=== PATIENT | female | born 1990 | race Caucasian/White ===

== ENCOUNTER → 2017-10-29 09:44 | Outpatient (CLI) | payer OTHER, SELFPAY ==
[2017-10-29 11:17] LABS: HCG,Quantitative 33 mIU/mL
== END ==
PROVIDERS: Visit Provider Obstetrics & Gynecology
DX: Z32.00 Encounter for pregnancy test, result unknown (principal)
CPT/HCPCS: 36415; 84702

== ENCOUNTER → 2017-11-01 09:30 | Outpatient (CLI) | payer OTHER, SELFPAY ==
[2017-11-01 10:52] LABS: HCG,Quantitative 13 mIU/mL
== END ==
PROVIDERS: Visit Provider Obstetrics & Gynecology
DX: Z32.00 Encounter for pregnancy test, result unknown (principal)
CPT/HCPCS: 36415; 84702

== ENCOUNTER → 2018-01-12 17:33 | Outpatient (CLI) | payer OTHER, SELFPAY ==
[2018-01-12 18:56] LABS: HCG,Quantitative 0 mIU/mL
== END ==
PROVIDERS: Visit Provider Nurse Practitioner Obstetrics & Gynecology
DX: Z32.00 Encounter for pregnancy test, result unknown (principal)
CPT/HCPCS: 36415; 84702

== ENCOUNTER → 2018-02-10 09:22 | Outpatient (CLI) | payer OTHER, SELFPAY ==
[2018-02-10 19:58] LABS: HCG,Quantitative 0 mIU/mL
== END ==
PROVIDERS: Visit Provider Nurse Practitioner Obstetrics & Gynecology
DX: Z32.00 Encounter for pregnancy test, result unknown (principal)
CPT/HCPCS: 36415; 84702

== ENCOUNTER → 2018-03-26 17:29 | Outpatient (CLI) | payer OTHER, SELFPAY ==
[2018-03-26 21:00] LABS: HCG,Quantitative 980 mIU/mL
== END ==
PROVIDERS: Visit Provider Nurse Practitioner Obstetrics & Gynecology
DX: Z34.90 Encounter for supervision of normal pregnancy, unspecified, unspecified trimester (principal)
CPT/HCPCS: 36415; 84702

== ENCOUNTER → 2018-03-30 17:10 | Outpatient (CLI) | payer OTHER, SELFPAY ==
[2018-03-30 18:00] LABS: Basophils % 0.5 % (0.1-2.0); Eosinophils # 0.1 K/mm3 (0.0-0.4); Eosinophils % 0.9 % (0.1-12.0); Hematocrit 34.5 % (37.0-47.0); Hemoglobin 11.2 g/dL (12.2-16.2); Lymphocytes # 2.5 K/mm3 (0.7-4.5); Lymphocytes % 31.7 K/mm3 (10-50); Mean Corpuscular HGB Conc 32.4 g/dL (31.8-35.4); Mean Corpuscular Hemoglobin 28.1 pg (27.0-31.2); Mean Corpuscular Volume 86.9 fl (81-99); Mean Platelet Volume 6.8 fl (7.4-10.4); Monocytes # 0.2 K/mm3 (0.1-1.0); Monocytes % 3.1 % (1.7-9.3); Neutrophils # 4.9 K/mm3 (1.8-7.8); Neutrophils % 63.7 % (37.0-80.0); Platelet Count 328 K/mm3 (142-424); Red Blood Count 3.97 M/mm3 (4.20-5.40); Red Cell Distribution Width 16.5 % (11.5-17.5); White Blood Count 7.8 K/mm3 (4.8-10.8)
[2018-04-01 14:42] LABS: HIV Screen 4th Generation wRfx Non Reactive (Non Reactive); Hepatitis B Surface Antigen Negative (Negative); Hepatitis C Antibody <0.1 s/co ratio (0.0-0.9)
[2018-04-01 14:43] LABS: Rapid Plasma Reagin Ab Titer Non Reactive (NonRea<1:1); Rubella Antibodies, IgG 2.36 index (Immune >0.99)
== END ==
PROVIDERS: Visit Provider Nurse Practitioner Obstetrics & Gynecology
DX: Z34.90 Encounter for supervision of normal pregnancy, unspecified, unspecified trimester (principal)
CPT/HCPCS: 36415; 85025; 86592; 86703; 86762; 86850; 87340; 87380; G0432

== ENCOUNTER → 2018-04-02 08:58 | Outpatient (CLI) | payer OTHER, SELFPAY ==
[2018-04-02 12:03] LABS: HCG,Quantitative 11433 mIU/mL
== END ==
PROVIDERS: Visit Provider Nurse Practitioner Obstetrics & Gynecology
DX: Z34.90 Encounter for supervision of normal pregnancy, unspecified, unspecified trimester (principal)
CPT/HCPCS: 36415; 84702

== ENCOUNTER → 2018-04-22 08:14 | Outpatient (CLI) | payer OTHER, SELFPAY ==
--- NOTE | 2018-04-22 08:16 | US_ITS ---
US OB transvaginal HISTORY: ITS.REASON: US OB Dates ORDERING PHYSICIAN: Emiliano Palomino MD PATIENT AGE: 27 years COMPARISON: None FINDINGS: An intrauterine gestational sac is present with a pole with a crown-rump length of 1.86cm correlating to gestational age of 8w3d. heart tones are present with an FHR of 167 bpm's. Yolk sac is noted. The amnion and chorion have not yet fused. Adnexa: Unremarkable. IMPRESSION: Live intrauterine gestation at 8 weeks 3 days as described above. Estimated due date by Ultrasound is 11/29/2018
== END ==
PROVIDERS: Visit Provider Nurse Practitioner Obstetrics & Gynecology
DX: O26.841 Uterine size-date discrepancy, first trimester (principal)
CPT/HCPCS: 76817

== ENCOUNTER → 2018-07-13 09:03 | Outpatient (CLI) | payer OTHER, SELFPAY ==
--- NOTE | 2018-07-13 09:07 | US_ITS ---
US OB /maternal detail: INDICATION: ITS.REASON: US OB Complete ORDERING PHYSICIAN: Emiliano Palomino MD PATIENT AGE: 28 years TECHNIQUE: ultrasound transabdominal scanning. COMPARISON: No previous relevant studies. FINDINGS: Single viable intrauterine gestation. Breech position at the end of the exam. Placenta: Posterior and fundal and anterior accessory lobe, placenta grade 1. There is average amount fluid. The cervix appears satisfactory. Closed and measuring 3 cm in length. Complete survey performed and was unremarkable on the submitted images as in PACS. No discrete anomalies identified on survey imaging by technologist. Active fetus. Three-vessel cord with satisfactory umbilical cord insertion. 4- chamber heart noted. Survey of brain & ventricles unremarkable. Face and neck survey unremarkable. Diaphragm and chest views unremarkable. Abdomen: Both kidneys noted and unremarkable. Stomach noted and satisfactory. There is minimal prominence of the renal pelves on both sides consistent with pyelectasis. Measuring approximate 6 mm on both sides. Spine: Survey of the spine satisfactory with no anomalies identified nor imaged. Both arms and legs noted. Amniotic Fluid: Adequate. Maternal adnexa: No significant findings. Measurements: Average ultrasound age 20w2d. Gestational Age 20w1d. Estimated due date by ultrasound age 0611/28/2018. Estimated weight 335 grams. BPD = 20w5d OFD = 20w5d HC = 19w6d AC = 20w3d FL = 20w0d Growth Percentile= 46% Heart Rate = 144 Cerebellum = 21w0d Humerus = 20w1d HC/AC is 1.14 (1.09-1.26). CI is 80% (70-86%). FL/BPD is 66%. FL/AC is 21%. IMPRESSION: There is a single live fetus which at the end of the exam was in breech presentation with an average ultrasound age of 20 weeks and 2 days. All parameters correlate. Fetus was active. There was some mild pyelectasis which is a question clinical significance. Follow-up exam at 30-40 weeks gestation may provide further evaluation. Otherwise unremarkable.
== END ==
PROVIDERS: Visit Provider Nurse Practitioner Obstetrics & Gynecology
DX: Z36.0 Encounter for antenatal screening for chromosomal anomalies (principal)
CPT/HCPCS: 76811; 76816

== ENCOUNTER 2018-08-25 11:23 | Outpatient (CLI) | payer OTHER, SELFPAY ==
[2018-08-25 11:27] VITALS: BP 99/61; PULSE 58; RESP 16; TEMP 36.5; O2SAT 100; BMI 17.8
[2018-08-25 11:32] VITALS: BMI 17.8
[2018-08-25 11:44] LABS: Microscopic, Urine URINE MICROSCOPIC (MICROSCOPIC)
[2018-08-25 11:49] LABS: Appearance,Urine CLEAR (Clear); Bilirubin,Urine Negative (Negative); Blood, Urine Negative (Negative); Color,Urine YELLOW (Yellow); Glucose,Urine (UA) Negative (Negative); Ketones,Urine Negative (Negative); Leukocyte Esterase,Urine Negative (Negative); Nitrate,Urine Negative (Negative); Protein,Urine Negative (Negative); Specific Gravity, Urine 1.015 (1.005-1.030)
[2018-08-25 12:26] LABS: Fetal Membrane Rupture (Rapid) Negative (Negative)
[2018-08-25 12:40] LABS: Bacteria,Urine 2+ /lpf
[2018-08-25 12:56] LABS: Fetal Fibronectin (Rapid) Negative (Negative)
== END 2018-08-25 13:10 | disposition home or self-care (01) ==
LOC: OBOUT 11:25 → OB 11:25
PROVIDERS: Visit Provider Nurse Practitioner Obstetrics & Gynecology
DX: O47.02 False labor before 37 completed weeks of gestation, second trimester (principal); Z3A.26 26 weeks gestation of pregnancy
CPT/HCPCS: 59025; 81001; 82731; 84112; 87086; 96360; 96372

== ENCOUNTER → 2018-08-26 08:16 | Outpatient (CLI) | payer OTHER, SELFPAY ==
[2018-08-26 08:35] LABS: Glucose,Fasting 83 mg/dL (60-105)
[2018-08-26 10:06] LABS: Glucose 1 Hour 130 mg/dL (74-106)
== END ==
PROVIDERS: Visit Provider Nurse Practitioner Obstetrics & Gynecology
DX: Z34.90 Encounter for supervision of normal pregnancy, unspecified, unspecified trimester (principal)
CPT/HCPCS: 36415; 82951

== ENCOUNTER → 2018-09-08 13:24 | Outpatient (CLI) | payer OTHER, SELFPAY ==
--- NOTE | 2018-09-08 13:26 | US_ITS ---
US OB BPP w/Fet-Mat S/D: Indication: ITS.REASON: US OB BPP Growth- Recheck fetus kidneys ORDERING PHYSICIAN: Emiliano Palomino MD PATIENT AGE: 28 years FINDINGS: The following parameters are obtained: Average ultrasound age is 28w0d. Estimated due date by ultrasound is 12/01/2018. Estimated weight is 1081 . This is 14th percentile BPD: 28w2d OFD: 29w0d HC: 28w4d AC: 27w1d FL: 27w5d heart rate: 144 bpm. HC/AC: 1.16 (1.05-1.22) Cephalic index: 74% (70-86%) FL/BPD: 74% (71-87%) FL/AC: 23% (20-24%) Amniotic fluid index: 12 cm Qualitative AFV: 2 breathing movements: 2 Gross body movements: 2 Tone: 2 Biophysical profile score: 8/8 Doppler evaluation of the umbilical artery: SD ratio: 3.1 Resistive index: 0.68 There remains mild ectasia of both renal collecting systems not significantly changed. The AP dimension of the left renal pelvis is 6 mm and in the right renal pelvis 5 mm.. Placenta: Post lat GR 1 IMPRESSION: There is a live intrauterine gestation with an average ultrasound age of 28 weeks 0 days. There has been adequate progression. There is no evidence of all ago hydramnios. JESSIE is normal. Biophysical profile is 8 of 8 and Doppler evaluation of the umbilical artery is unremarkable. There remains mild pyelectasis overall not significantly changed.
== END ==
PROVIDERS: PCP Nurse Practitioner Obstetrics & Gynecology; Visit Provider Nurse Practitioner Obstetrics & Gynecology
DX: O35.8XX0 Maternal care for other (suspected) fetal abnormality and damage, not applicable or unspecified (principal)
CPT/HCPCS: 76811; 76816; 76819; 76820

== ENCOUNTER → 2018-10-27 11:00 | Outpatient (CLI) | payer OTHER, SELFPAY | PROVIDERS: Visit Provider Nurse Practitioner Obstetrics & Gynecology | DX: Z34.90 Encounter for supervision of normal pregnancy, unspecified, unspecified trimester (principal) | CPT/HCPCS: 86403 ==

== ENCOUNTER → 2018-11-12 10:44 | Outpatient (CLI) | payer OTHER, SELFPAY ==
--- NOTE | 2018-11-12 10:45 | US_ITS ---
US OB follow up: Indication: ITS.REASON: US OB Growth JESSIE- Small for dates ORDERING PHYSICIAN: Mildred Zhang MD PATIENT AGE: 28 years FINDINGS: There is a single live fetus which is in cephalic presentation. heart and body motion noted. The sent is posterior and fundal an implantation and grade 2. The following parameters are obtained: Average ultrasound age is 36w0d. Estimated due date by ultrasound is 12/10/2018. Estimated weight is 2742gm. This is 15th percentile BPD: 37w0d OFD: 36w5d HC: 35w0d AC: 35w0d FL: 37w0d. There is heart rate: 144 bpm. HC/AC: 1.01 (0.92-1.05) Cephalic index: 82% (70-86%) FL/BPD: 79% (71-87%) FL/AC: 23% (20-24%) Amniotic fluid index: 18 cm Doppler evaluation of the umbilical artery: SD ratio: 2.7 Resistive index: 0.64 Note is made of visualization of a nondistended colon. The bowel is not hyperechoic Placenta: Posterior High, GR2 Cervix: Appears closed and measures 4 cm IMPRESSION: There is a single live intrauterine gestation with average ultrasound age of 36 weeks and 0 days and an estimated weight 2742 g which is 15th percentile. Amniotic fluid index is upper limits of normal at 18 cm. Unremarkable Doppler evaluation of the umbilical artery. The placenta is posterior and fundal and grade 2.
== END ==
PROVIDERS: Visit Provider Obstetrics & Gynecology
DX: O36.5990 Maternal care for other known or suspected poor fetal growth, unspecified trimester, not applicable or unspecified (principal)
CPT/HCPCS: 76816

== ENCOUNTER 2018-11-16 13:55 | Outpatient (CLI) | payer OTHER, SELFPAY ==
[2018-11-16 14:02] VITALS: BP 113/62; PULSE 99; RESP 18; TEMP 36.6; O2SAT 99; BMI 18.6
[2018-11-16 14:16] LABS: Appearance,Urine CLEAR (Clear); Bilirubin,Urine Negative (Negative); Blood, Urine Negative (Negative); Color,Urine YELLOW (Yellow); Glucose,Urine (UA) Negative (Negative); Ketones,Urine Negative (Negative); Leukocyte Esterase,Urine 1+ (Negative); Microscopic, Urine URINE MICROSCOPIC (MICROSCOPIC); Nitrate,Urine Negative (Negative); PH,Urine 6.5 (5.0-8.5); Protein,Urine Negative (Negative); Specific Gravity, Urine 1.015 (1.005-1.030); Urobilinogen,Urine 0.2 EU/dl (0.2)
[2018-11-16 14:26] LABS: Amphetamine/Metha Screen,Urine Negative ng/mL (<1000); Barbiturates Screen,Urine Positive ng/mL (<200); Benzodiazepines Screen,Urine Negative ng/mL (<200); Cannabinoid Screen,Urine Negative ng/mL (<50); Cocaine Screen,Urine Negative ng/mL (<300); Methadone Screen,Urine Negative ng/mL (<300); Opiate Screen,Urine Positive ng/mL (<300); Phencyclidine Screen,Urine Negative ng/mL (<25)
[2018-11-16 14:30] LABS: Bacteria,Urine 1+ /lpf; Mucus,Urine Trace /lpf
== END 2018-11-16 14:45 | disposition home or self-care (01) ==
LOC: OBOUT 13:56 → OB 13:57
PROVIDERS: Visit Provider Nurse Practitioner Obstetrics & Gynecology
DX: O60.03 Preterm labor without delivery, third trimester (principal); Z3A.38 38 weeks gestation of pregnancy
CPT/HCPCS: 59025; 80305; 81001; 87086

== ENCOUNTER 2018-11-23 04:48 | Inpatient (IN) ==
[2018-11-23 05:39] LABS: Microscopic, Urine URINE MICROSCOPIC (MICROSCOPIC)
[2018-11-23 05:39] LABS: Basophils % 0.2 % (0.1-2.0); Eosinophils # 0.1 K/mm3 (0.0-0.4); Eosinophils % 0.5 % (0.1-12.0); Hematocrit 29.8 % (37.0-47.0); Hemoglobin 9.3 g/dL (12.2-16.2); Lymphocytes # 2.2 K/mm3 (0.7-4.5); Lymphocytes % 17.4 % (10-50); Mean Corpuscular HGB Conc 31.3 g/dL (31.8-35.4); Mean Corpuscular Volume 87.2 fl (81-99); Mean Platelet Volume 8.9 fl (7.4-10.4); Monocytes # 0.6 K/mm3 (0.1-1.0); Monocytes % 4.3 % (1.7-9.3); Neutrophils # 9.9 K/mm3 (1.8-7.8); Neutrophils % 77.5 % (37.0-80.0); Platelet Count 268 K/mm3 (142-424); Red Blood Count 3.42 M/mm3 (4.20-5.40); Red Cell Distribution Width 13.4 % (11.5-17.5); White Blood Count 12.7 K/mm3 (4.8-10.8)
[2018-11-23 05:45] LABS: Appearance,Urine SL CLOUDY (Clear); Bilirubin,Urine Negative (Negative); Blood, Urine Negative (Negative); Color,Urine YELLOW (Yellow); Glucose,Urine (UA) Negative (Negative); Ketones,Urine Negative (Negative); Leukocyte Esterase,Urine TRACE (Negative); Protein,Urine Negative (Negative); Specific Gravity, Urine 1.015 (1.005-1.030)
[2018-11-23 05:48] LABS: Amphetamine/Metha Screen,Urine Negative ng/mL (<1000); Barbiturates Screen,Urine Positive ng/mL (<200); Benzodiazepines Screen,Urine Negative ng/mL (<200); Cannabinoid Screen,Urine Negative ng/mL (<50); Cocaine Screen,Urine Negative ng/mL (<300); Methadone Screen,Urine Negative ng/mL (<300); Opiate Screen,Urine Positive ng/mL (<300); Phencyclidine Screen,Urine Negative ng/mL (<25)
[2018-11-23 05:49] LABS: Amorphous Sediment,Urine 2+ /lpf; Squamous Epithelial Cell,Urine 20-50 #/hpf (0-5); WBC,Urine Occasional #/hpf (0-3)
--- NOTE | 2018-11-23 09:26 | History & Physical Report ---
OB - H&P: HPI Antepartum - History of Present Illness Chief complaint: Contractions and pressure History of present illness: She is a 28-year-old 7 para 5 aborta 1 who complains of lots of pressure and contractions. She has been having this since about 34 weeks. - History of Present Criteria for establishing EDC:: LMP confirmed by 1st trimester US care: good care Ultrasounds: normal 1st trimester US, normal mid trimester US Obstetrical complications: none Medical complications: none - Labs Blood type: B (+) positive Rubella: immune RPR/VDRL: nonreactive GBS status: negative [facility] History I have reviewed the patient's past medical history: Yes Medical History: Reports:: Anxiety, Depression, Migraine *Have you ever received a pneumonia vaccine?: No *Have you received a flu vaccine this season?: No Other Surgeries: Yes: Appendectomy. No: Amputation: No Fractures: No - *Social History Smoking Status: Current every day smoker Alcohol Intake: never Substance Use Type: denies use *Occupational Status:: unemployed *Travel in the last 8 weeks: None - Psychiatric History Pschychiatric History:: Reports:: Anxiety, Depression Family Hx:: No significant family history Para: 5 Review of Systems - Review of Systems Review of systems:: pertinent systems reviewed and negative unless documented below Meds Home Medications Medication Instructions Recorded Confirmed Type 1 tab PO DAILY 03/30/18 11/23/18 History vitamin,calcium,utqsftzk-zgkr-gbjyd acid tablet promethazine 12.5 mg tablet 12.5 mg PO Q6H PRN #20 tab 04/08/18 11/23/18 Rx Acetaminophen with Codeine 1 tab PO NEEDED PRN 11/23/18 11/23/18 History [Tylenol with Codeine #3 tablet] Butalb/Acetaminophen/Caffeine 1 tab PO NEEDED PRN 11/23/18 11/23/18 History [Fiorcet Tablet] Ferrous Sulfate 325 mg PO DAILY 11/23/18 11/23/18 History raNITIdine HCl [Ranitidine HCl] 150 mg PO DAILY 11/23/18 11/23/18 History Allergies Allergy/AdvReac Type Severity Reaction Status Date / Time Nalbuphine Allergy Severe THROAT Uncoded 11/17/18 08:48 SWELL PCN (penicillin) Allergy Intermediate I-HIVES Uncoded 11/17/18 08:48 Penicillin Allergy Unknown Uncoded 11/17/18 08:48 Penicillin G Allergy Unknown Uncoded 11/17/18 08:48 OB - H&P: Exam - Physical Exam Vital signs: Temp Pulse Resp BP Pulse Ox 98.2 F 72 18 105/51 L 100 11/23/18 08:13 11/23/18 08:13 11/23/18 08:13 11/23/18 08:13 11/23/18 08:13 - Constitutional no acute distress - Routine HEENT Exam Head: Present: normocephalic Eye: Present: EOMI, PERRL ENT: Present: mucous membranes moist - Routine Neck Exam Present: supple, full ROM - Routine Respiratory Exam Absent: accessory muscle use (good air entry bilaterally), respiratory distress, wheezes, crackles - Routine Cardiovascular Exam Present: RRR. Absent: murmur - Routine Abdominal Exam Present: soft, normoactive bowel sounds. Absent: tenderness, distended, guarding - Routine Rectal Exam Patient deferred: visual exam, digital exam - Routine Exam Patient deferred: external exam, groin exam, perineal exam - Routine Extremities Exam Present: full ROM. Absent: cyanosis, edema - Routine Skin Exam Present: intact. Absent: cyanosis - Routine Neurological Exam Present: alert, oriented X3 - Routine Psychiatric Exam Present: normal affect OB - Results - Labs Labs: Short CBC 11/23/18 Range/Units 05:30 WBC 12.7 H (4.8-10.8) K/mm3 Hgb 9.3 L (12.2-16.2) g/dL Hct 29.8 L (37.0-47.0) % Plt Count 268 (142-424) K/mm3 Urine 11/23/18 Range/Units 05:00 Urine Color Yellow (Yellow) Urine Appearance Sl cloudy (Clear) Urine pH 7.0 (5.0-8.5) Ur Specific [place] 1.015 (1.005-1.030) Urine Protein Negative (Negative) Urine Glucose (UA) Negative (Negative) OB - A/P Antepartum (1) Normal delivery Current visit: Yes Status: Acute (2) Grand multiparity with current Problem details: Current visit: No Status: Acute - Additional Plan Planning to breastfeed?: No Plan: other Additional Information:: She has been having regular contractions on arrival. She is still 2 to 3 cm. I have inserted an IUPC and a scalp clip. I ruptured her membranes and there was clear fluid. The nonstress test is reactive. She is raquel every 2 to 3 minutes now.
--- NOTE | 2018-11-23 09:27 | Progress Note ---
Labor Note - Subjective: Date: 11/23/18 Time: 09:27 regular contraction - Objective: NST:: Reactive Contractions:: every 2-3 minutes Cervical Dilation:: 2-3 Effacement:: 50% Station: -2 Membranes: artificially ruptured - Fetus: Monitoring?: Yes monitoring type:: Internal - Assessment: Labor progressing?: Yes Cephalopelvic disproportion?: No Patient Problems: All Active Problems Normal delivery (Acute) Grand multiparity with current (Acute) Tobacco smoking complicating (Acute) Anemia complicating (Acute) (Acute) - Plan: Anesthesia for epidural?: Yes Continue to labor down?: Yes Plan for ?: No Continue to monitor?: Yes Start pushing?: No Comment:: She is now 3 cm dilated. Her membranes ruptured with clear fluid. She has internal monitors. The nonstress test is reactive and she is raquel every 2 to 3 minutes.
--- NOTE | 2018-11-23 10:21 | Progress Note ---
[facility] Anesthesia Checklist - Patient Identification Patient Identification: Arm Band, Verbal (Name & ) - Structural Data Admitted From: Home Planned Operative Procedure/s: Labor epidural Consent for Planned Operative Procedure(s) Verified: Yes Verified Documents: Surgical Consent, History and Physical - NPO Status Verified Time NPO: 00:00 - Chart Verification Results Verified: CBC - Additional verifications Patient : Yes Anesthesia Reactions: No - Airway Assessment C-Spine Mobility Assessed: Yes TMJ Mobility Assessed: Yes Dentition: Good Dentition - Neurological Assessment Level of Consciousness: Awake, Alert, Appropriate, Follows Commands Hx Seizures: No Numbness or tingling in extremities: No - Anesthesia Plan Anesthesia Risk discussed: Yes Anesthesia Plan: Verified ASA Class: II Anesthesia Type: Epidural [facility] History I have reviewed the patient's past medical history: Yes Medical History: Reports:: Anxiety, Depression, Migraine *Have you ever received a pneumonia vaccine?: No *Have you received a flu vaccine this season?: No Other Surgeries: Yes: Appendectomy. No: Amputation: No Fractures: No - *Social History Smoking Status: Current every day smoker Alcohol Intake: never Substance Use Type: denies use *Occupational Status:: unemployed *Travel in the last 8 weeks: None - Psychiatric History Pschychiatric History:: Reports:: Anxiety, Depression Family Hx:: No significant family history Para: 5
--- NOTE | 2018-11-23 11:37 | Progress Note ---
Labor Note - Subjective: Date: 11/23/18 Time: 11:36 regular contraction - Objective: NST:: Reactive Contractions:: every 2-3 minutes Cervical Dilation:: 5 Effacement:: 100% Station: 0 Membranes: artificially ruptured - Fetus: Monitoring?: Yes monitoring type:: Internal - Assessment: Labor progressing?: Yes Cephalopelvic disproportion?: No Patient Problems: All Active Problems (Updated 11/23/18 @ 09:26 by Emiliano Palomino MD) Normal delivery (Acute) Grand multiparity with current (Acute) Tobacco smoking complicating (Acute) Anemia complicating (Acute) (Acute) - Plan: Anesthesia for epidural?: Yes Continue to labor down?: Yes Plan for ?: No Continue to monitor?: Yes Start pushing?: No Comment:: She continues to do well. We will redo her epidural since she can feel everything. We are anticipating a vaginal delivery soon.
--- NOTE | 2018-11-23 13:08 | Procedure Note ---
- Delivery Note Delivery Date:: 11/23/18 Delivery Time:: 12:53 Anesthesia Type: Epidural Was labor medically induced?: No Induction method: none Gestational age (weeks): 39 Infant delivered prior to 39 weeks?: No Justification for early elective delivery:: Active Labor Gender: Female at 1 minute: 7 at 5 minutes: 9 AF:: Clear Delivery Procedure:: She is a 28-year-old 7 para 5 aborta 1 who was 39 weeks gestational age. She has been having contractions since about 34 weeks. She came in this morning having irregular contractions at term so we elected to augment her labor. She was started on IV oxytocin and had her membranes ruptured. Under labor epidural she progressed to full dilation and delivered spontaneously a liveborn female child at 12:53 PM. On deliver the head it was noted that there was a loose nuchal cord and this was reduced. This was followed by the anterior shoulder and the rest of the infant's body atraumatically. We allowed the cord to continue to pulsate for approximately 1 minute. The cord was then doubly clamped and cut. The baby was placed on the mother's abdomen for further care. The nurses assigned Apgars of 7 at 1 minute and 9 at 5 minutes. We then obtained cord blood as well as cord pH. She received IV oxytocin and using gentle traction on the cord and countertraction the fundus I was able to easily deliver the placenta intact. It had a normal three-vessel cord. There were no perineal or left vaginal lacerations. She has B+ blood, she is rubella immune and was group B stopcock is negative. She plans to bottlefeed. Her grouter helper is Dr. Dodson. Estimated blood loss was approximately 200 cc. Placental Delivery Description: Spontaneous
[2018-11-24 06:39] LABS: Hematocrit 25.4 % (37.0-47.0)
--- NOTE | 2018-11-24 08:15 | Progress Note ---
Internal Medicine - PN: Subj *Date: 11/24/18 *Time: 08:14 Interval history: She is doing well this morning. She denies any shortness of breath or dizziness. Her hemoglobin is only 8.0. She only started out at 9.3 prior to delivery. She is breast-feeding. Her lochia is normal. Exam Vital signs and Labs for Last 24 Hours: Temp Pulse Resp BP Pulse Ox 98.7 F 67 16 96/55 L 99 11/24/18 05:25 11/24/18 05:25 11/24/18 05:25 11/24/18 05:25 11/23/18 19:50 Laboratory Results - last 24 hr 11/23/18 13:03: Cord ABG pH 7.37 11/24/18 06:05: Hgb 8.0 L, Hct 25.4 L I & O for Last 24 hours: Intake & Output 11/21/18 11/22/18 11/23/18 11/24/18 11:59 11:59 11:59 11:59 Weight 112 lb - Constitutional no acute distress Assessment and Plan (1) Normal delivery Current visit: Yes Status: Acute Category: Medical Code(s): O80 - Encounter for full-term uncomplicated delivery (2) Grand multiparity with current Problem details: Current visit: No Status: Acute Qualifiers: Trimester: third trimester Qualified Code(s): O09.43 - Supervision of with grand multiparity, third trimester Category: Medical Code(s): O09.40 - Supervision of with grand multiparity, unspecified trimester (3) Anemia complicating Problem details: Hgb 10.3 Current visit: No Status: Acute Category: Medical Code(s): O99.019 - Anemia complicating , unspecified trimester - Assessment and plan all Dx Assessment and Plan for all problems:: We will plan to send her home tomorrow. We will send her home with iron and vitamins. I explained to her that she needs to take this for at least the next couple of months.
[2018-11-25 05:41] VITALS: BP 108/72
--- NOTE | 2018-11-25 08:49 | Discharge Summary ---
General - General Admission date:: 11/23/18 Discharge date: 11/25/18 HPI HPI: She is a 28-year-old 7 now para 6 aborta 1 who is 39 1 weeks gestational age. She came in having regular contractions and was found to be 3 cm dilated. Since she was term we elected to augment her labor. Hospital Course Hospital Course: She was started on IV oxytocin had her membranes ruptured. Under labor epidural she progressed to full dilation and delivered spontaneously a liveborn female child at 1:53 PM in the afternoon of November 23, 2018. The baby weighed 5 pounds 13 ounces and was 19 inches long. She had Apgars of 7 at 1 minute and 9 at 5 minutes. She has done well post and has remained afebrile throughout her hospitalization. She is eating and drinking and ambulating. She is breast- feeding. She has B+ blood, she is rubella immune and was group B stopcock is negative. Her final assembly inspector is Dr. Dodson. She is discharged home to follow-up with me in approximately 2 weeks time. She will continue with her vitamins and iron. She had a slightly low hemoglobin of 8.0 but she started at 9.3. I have encouraged her to continue with the iron and vitamins. She has been taking Percocet 5/325 and we will give her a prescription for this. Her condition on discharge is stable. Rhogam Administration: Not Indicated Objective Vital signs: Temp Pulse Resp BP Pulse Ox 98.3 F 73 18 108/72 L 100 11/24/18 20:00 11/24/18 20:00 11/24/18 20:00 11/24/18 20:00 11/24/18 20:00 no acute distress DS: Diagnosis - Discharge Diagnosis (1) Normal delivery Status: Acute (2) Grand multiparity with current Status: Acute Problem details: (3) Anemia complicating Status: Acute Problem details: Hgb 10.3 Discharge Plan - Patient Discharge Instructions ACTIVITY: No heavy lifting DIET: continue same diet Additional Instructions: No heavy lifting, no strenuous activity and nothing in the vagina for 6 weeks. Patient Instructions: Depression, Labor and Delivery, Vaginal , Hemorrhage, DI for Labor and Delivery, Vaginal , [facility] Post Discharge Instructions - Follow up Plan Follow up with: Emiliano Palomino MD [Staff Physician] - Disposition: Home, Self-Group Home Medications: Home Medications Medication Instructions Recorded Confirmed Type 1 tab PO DAILY 03/30/18 11/23/18 History vitamin,calcium,vaxeczqs-nvsz-hjntm acid tablet promethazine 12.5 mg tablet 12.5 mg PO Q6H PRN #20 tab 04/08/18 11/23/18 Rx Acetaminophen with Codeine 1 tab PO NEEDED PRN 11/23/18 11/23/18 History [Tylenol with Codeine #3 tablet] Butalb/Acetaminophen/Caffeine 1 tab PO NEEDED PRN 11/23/18 11/23/18 History [Fiorcet Tablet] Ferrous Sulfate 325 mg PO DAILY 11/23/18 11/23/18 History raNITIdine HCl [Ranitidine HCl] 150 mg PO DAILY 11/23/18 11/23/18 History Oxycodone HCl/Acetaminophen 1 - 2 tab PO Q4-6H PRN #20 tab 11/25/18 Rx [Percocet 5/325mg tablet] Prescriptions/Medication Reconciliation: New Oxycodone HCl/Acetaminophen [Percocet 5/325mg tablet] 1 - 2 tab PO Q4-6H PRN #20 tab PRN Reason: Severe Pain Continued vitamin,calcium,khxyhryu-ujiy-wqpgq acid tablet 1 tab PO DAILY Butalb/Acetaminophen/Caffeine [Fiorcet Tablet] 1 tab PO NEEDED PRN PRN Reason: Headache raNITIdine HCl [Ranitidine HCl] 150 mg PO DAILY Ferrous Sulfate 325 mg PO DAILY Discontinued promethazine 12.5 mg tablet 12.5 mg PO Q6H PRN #20 tab PRN Reason: nausea and vomiting Acetaminophen with Codeine [Tylenol with Codeine #3 tablet] 1 tab PO NEEDED PRN PRN Reason: Moderate To Severe Pain
== END 2018-11-25 10:10 | disposition home or self-care (01) | DRG 807 ==
LOC: OB 04:48
PROVIDERS: ADMIT Nurse Practitioner Obstetrics & Gynecology; ATTEND Nurse Practitioner Obstetrics & Gynecology
CPT/HCPCS: 36415; 59025; 80305; 81001; 82800; 85014; 85018; 85025; 86850; 94761; C1758; J1050

== ENCOUNTER → 2020-04-05 14:59 | Outpatient (CLI) | payer OTHER, SELFPAY ==
--- NOTE | 2020-04-05 15:00 | US_ITS ---
PROCEDURE: US TRANSVAGINAL CLINICAL INDICATION: Dysmenorrhea,Heavy Bleeding COMPARISON: US OBTV US OB transvaginal from 04/22/2018 FINDINGS: UTERUS: 9cm x 6cmx 4cm with a combined endometrial thickness of 11.7mm LEFT OVARY: [id number] with a volume of 2.1ml. RIGHT OVARY: [id number] with a volume of 8.4ml. Uterus is mildly prominent at 9 x 4 x 6 cm. Endometrium is slightly thickened at 12 mm. There is a 2 cm right ovarian cyst. No cul-de-sac fluid apparent. Left ovary is difficult to visualize but has an unremarkable appearance transabdominal. IMPRESSION: Mildly prominent uterus with borderline thickening of the endometrium Dictated by: Jesse Hickman MD 04/05/2020 16:39 Jesse Hickman MD in [place] 04/05/2020 16:39
== END ==
PROVIDERS: Visit Provider Nurse Practitioner Obstetrics & Gynecology
DX: N92.0 Excessive and frequent menstruation with regular cycle (principal); N94.6 Dysmenorrhea, unspecified
CPT/HCPCS: 76830

== ENCOUNTER → 2020-04-05 16:09 | Outpatient (CLI) | payer OTHER, SELFPAY ==
[2020-04-05 17:26] LABS: Anion Gap 12.1 mEq/L (5-15); Blood Urea Nitrogen 10 mg/dl (7-17); Calcium 9.9 mg/dl (8.4-10.2); Carbon Dioxide 28 mmol/L (22.0-30.0); Chloride 102 mmol/L (98-107); Estimated Glomerular Filt Rate 118 ml/min (>60); GFR (African American) 143 ML/MIN (>60); Glucose 80 mg/dl (74-100); Potassium 4.1 mmoL/L (3.5-5.1); Sodium 138 mmol/L (136-145)
[2020-04-05 17:49] LABS: HCG Qualitative, Serum Negative (Negative)
[2020-04-05 18:02] LABS: Coronavirus 19 IgG Antibody Negative (Negative); Coronavirus 19 IgM Antibody Negative (Negative)
== END ==
PROVIDERS: Visit Provider Nurse Practitioner Obstetrics & Gynecology
DX: Z01.818 Encounter for other preprocedural examination (principal); N93.9 Abnormal uterine and vaginal bleeding, unspecified; N92.0 Excessive and frequent menstruation with regular cycle
CPT/HCPCS: 36415; 80048; 84703; 86328

== ENCOUNTER 2020-04-07 07:37 | Day surgery (SDC) | payer OTHER, SELFPAY ==
[2020-04-06 10:39] VITALS: BMI 16.0
[2020-04-07] VITALS (11 sets, daily range): BP systolic 99–107; BP diastolic 57–79; PULSE 55–80; RESP 12–25; TEMP 36.4–36.6; O2SAT 99–100
--- NOTE | 2020-04-07 09:08 | P.PN_ITS ---
[facility] Anesthesia Checklist - Patient Identification Patient Identification: Arm Band, Verbal (Name & ) - Structural Data Admitted From: Home Planned Operative Procedure/s: Hysteroscopy, D&C, Novasure Consent for Planned Operative Procedure(s) Verified: Yes Verified Documents: Surgical Consent, History and Physical - NPO Status Verified Time NPO: 00:00 - Chart Verification Results Verified: BMP - Additional verifications Patient : No Anesthesia Reactions: No Hx Blood Transfusions: No Blood Transfusion Reaction: No - Airway Assessment C-Spine Mobility Assessed: Yes (MP 2, TMD 3, full neck ROM) TMJ Mobility Assessed: Yes Dentition: Edentulous - Neurological Assessment Level of Consciousness: Awake, Alert, Appropriate, Follows Commands Hx Seizures: No Numbness or tingling in extremities: No - Anesthesia Plan Anesthesia Risk discussed: Yes Anesthesia Plan: Verified ASA Class: II Anesthesia Type: General [facility] History I have reviewed the patient's past medical history: Yes Medical History: Reports:: Migraine Denies:: Cancer, Diabetes Mellitus Type 1, Diabetes Mellitus Type 2, Internal Pacemaker, MRSA, Seizures *Have you ever received a pneumonia vaccine?: No *Have you received a flu vaccine this season?: No Other Medical History: Denies: Blood Transfusion Reaction Anesthesia experience/problems:: NOne Laterality Cases: Bilateral: Tonsillectomy Other Surgeries: Yes: Appendectomy, Tubal Ligation. No: , Pacemaker Amputation: No Fractures: No - *Social History Last grade of school completed: GED Smoking Status: Current every day smoker Tobacco Type: cigarettes # Packs/Day (cigarettes): 1 Alcohol Intake: never Substance Use Type: denies use *Occupational Status:: unemployed Housing: house Household Members: significant other, family *Travel in the last 8 weeks: None - Psychiatric History Pschychiatric History:: Reports:: Anxiety, Depression Family Hx:: No significant family history
--- NOTE | 2020-04-07 09:14 | P.OP_ITS ---
Date of procedure: 04/07/20 Pre-op Diagnosis:: Menorrhagia Post-op Diagnosis:: Menorrhagia Procedure performed:: Hysteroscopy, dilation and curettage, NovaSure ablation Surgeon:: Emiliano Palomino MD INNER LAYER SCRUBBER TENDER:: Clifton Jerome Anesthesia: LMA Estimated blood loss (mL): 50 Clinical Note:: She is a 29-year-old lady who complains of extremely heavy periods. She has had a previous tubal ligation. After having discussed the risks and benefits she elected to have a hysteroscopy, D&C and NovaSure ablation. Operative findings:: She had a normal-appearing anteverted uterus. The uterus sounded to 9 cm. The width was 4.5 cm and the length of the endometrial cavity was 6 cm. Operative note:: She was taken to the operating room where LMA anesthesia was found be adequate. She was prepped and draped in the normal sterile fashion in the lithotomy position. A weighted speculum was placed in the vagina and the anterior lip of the cervix was grasped with a tenaculum. The cervix was then dilated to approximately 6 mm. I then inserted a hysteroscope into the uterine cavity and the findings were as previously dictated. I then performed a gentle curettage with a medium curette. I then sounded the uterus and determine the length of the uterus. This was placed into the NovaSure device. I then inserted the NovaSure device and determine the width of the endometrial cavity. I then ran the device through its program. I further inspected the endometrial cavity and was found to be completely charred. I then injected 30 cc of 0.5% ropivacaine at the 3:00, 5:00, 7:00, and 9:00 positions of the cervix. She tolerated procedure well and was taken to the recovery room in excellent condition. All sponge and instrument counts were correct. The estimated blood loss was less than 50 cc. Condition: stable Disposition: PACU Specimens:: Endometrial curettings Complications:: None
--- NOTE | 2020-04-07 09:24 | HMH.ANESI ---
[facility] Anesthesia Record Part I Intake, IV Amount: 600 Estimated blood loss (mL): 50 Urine output (mL): 0 (NM) Blood Products used (#): none Blood Pressure: 99/63 SaO2: 100 Pulse Rate: 74 Respiratory Rate: 12 Temperature: 97.6 F Patient is:: Awake, Drowsy, Stable Stable to PACU at:: 09:20
[2020-04-07 09:28] LABS: Basophils % 0.6 % (0.1-2.0); Eosinophils % 0.7 % (0.1-12.0); Hematocrit 40.8 % (37.0-47.0); Hemoglobin 13.3 g/dL (12.2-16.2); Lymphocytes # 1.5 K/mm3 (0.7-4.5); Lymphocytes % 26.3 % (10-50); Mean Corpuscular HGB Conc 32.7 g/dL (31.8-35.4); Mean Corpuscular Hemoglobin 29.3 pg (27.0-31.2); Mean Corpuscular Volume 89.5 fl (81-99); Mean Platelet Volume 8.3 fl (7.4-10.4); Monocytes # 0.3 K/mm3 (0.1-1.0); Monocytes % 5.2 % (1.7-9.3); Neutrophils # 3.9 K/mm3 (1.8-7.8); Neutrophils % 67.3 % (37.0-80.0); Platelet Count 243 K/mm3 (142-424); Red Blood Count 4.55 M/mm3 (4.20-5.40); Red Cell Distribution Width 15.4 % (11.5-17.5); White Blood Count 5.7 K/mm3 (4.8-10.8)
--- NOTE | 2020-04-07 16:07 | P.PN_ITS ---
[facility] Anesthesia Record Part II Discharge Time: 09:50 Destination: Surgical Day Care (OP Surgery) PACU nurse assessment reviewed?: Yes Patient Condition:: Good Anesthesia Complications:: None Swallowing reflex intact?: Yes Cyanosis?: No Blood Pressure: 105/64 Pulse Rate: 61 Temperature: 97.6 F Mental Status: Alert & Oriented Pain level:: 0 Nausea and/or vomitting:: None Intake, IV Amount: 0 (Normovolemic)
== END 2020-04-07 10:40 | disposition home or self-care (01) ==
LOC: OR 07:40
PROVIDERS: Visit Provider Nurse Practitioner Obstetrics & Gynecology
PROC: 0U5B8ZZ Destruction of Endometrium, Via Natural or Artificial Opening Endoscopic (ICD-10-PCS; CPT 58563; principal; 2020-04-07 08:45)
DX: N93.9 Abnormal uterine and vaginal bleeding, unspecified (principal); N92.0 Excessive and frequent menstruation with regular cycle; Z90.49 Acquired absence of other specified parts of digestive tract; Z72.0 Tobacco use; F41.9 Anxiety disorder, unspecified; F32.9 Major depressive disorder, single episode, unspecified; Z90.89 Acquired absence of other organs; Z88.6 Allergy status to analgesic agent; Z88.0 Allergy status to penicillin
CPT/HCPCS: 58563; 85025; 96374; J2405

== ENCOUNTER → 2020-12-12 16:14 | Outpatient (CLI) | payer OTHER, SELFPAY ==
[2020-12-12 16:34] LABS: Basophils % 0.5 % (0.1-2.0); Eosinophils # 0.1 K/mm3 (0.0-0.4); Eosinophils % 0.9 % (0.1-12.0); Hematocrit 41.3 % (37.0-47.0); Hemoglobin 13.3 g/dL (12.2-16.2); Lymphocytes # 2.7 K/mm3 (0.7-4.5); Lymphocytes % 28.7 % (10-50); Mean Corpuscular HGB Conc 32.2 g/dL (31.8-35.4); Mean Corpuscular Hemoglobin 30.6 pg (27.0-31.2); Mean Corpuscular Volume 95.1 fl (81-99); Mean Platelet Volume 7.1 fl (7.4-10.4); Monocytes # 0.4 K/mm3 (0.1-1.0); Monocytes % 4.3 % (1.7-9.3); Neutrophils # 6.2 K/mm3 (1.8-7.8); Neutrophils % 65.6 % (37.0-80.0); Platelet Count 279 K/mm3 (142-424); Red Blood Count 4.34 M/mm3 (4.20-5.40); Red Cell Distribution Width 14.1 % (11.5-17.5); White Blood Count 9.5 K/mm3 (4.8-10.8)
[2020-12-12 17:37] LABS: Free Thyroxine Index 2.7 ug/dL (5.93-13.13); T4 (Thyroxine) 7.4 ug/dl (5.53-11.0); Triiodothryronine (T3) Uptake 36 % (23.5-40.5)
[2020-12-12 17:51] LABS: Thyroid Stimulating Hormone 0.86 uIU/mL (0.465-4.68)
[2020-12-15 18:12] LABS: Neisseria gonorrhoeae, NAA Negative (Negative)
== END ==
PROVIDERS: Visit Provider Nurse Practitioner Obstetrics & Gynecology
DX: Z01.818 Encounter for other preprocedural examination (principal); N93.9 Abnormal uterine and vaginal bleeding, unspecified; R53.82 Chronic fatigue, unspecified; Z72.51 High risk heterosexual behavior
CPT/HCPCS: 36415; 84436; 84443; 84479; 85025; 87491; 87591

== ENCOUNTER → 2022-07-08 23:47 | Outpatient (CLI) | payer OTHER, SELFPAY ==
[2022-07-11 04:09] LABS: Neisseria gonorrhoeae, NAA Negative (Negative)
== END ==
PROVIDERS: Visit Provider Nurse Practitioner Obstetrics & Gynecology
DX: N89.8 Other specified noninflammatory disorders of vagina (principal)
CPT/HCPCS: 87491; 87591